=== PATIENT | female | born 2005 | race African-American/Black ===

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

== ENCOUNTER 2024-04-05 17:46 | Emergency (ER) | payer BC, OTHER | END 2024-04-06 17:12 | disposition home or self-care (01) | LOC: ERS 17:46 | DX: S06.0X0A Concussion without loss of consciousness, initial encounter (principal); W22.8XXA Striking against or struck by other objects, initial encounter; Y93.83 Activity, rough housing and horseplay | CPT/HCPCS: 99283 ==